=== PATIENT | male | born 1990 | race Two or more races ===

== ENCOUNTER 2019-12-03 21:22 | Emergency (ER) | payer MEDICAID ==
--- NOTE | 2019-12-03 22:08 | EDM.PDOC ---
ED HPI GENERAL MEDICAL PROBLEM - General Chief Complaint: Upper Extremity Injury/Pain Stated Complaint: INJURED RIGHT WRIST Time Seen by Provider: 12/03/19 21:50 Source of Information: Reports: Patient History Limitations: Reports: No Limitations - History of Present Illness INITIAL COMMENTS - FREE TEXT/NARRATIVE: 29-year-old male fell over a dog 2 days ago landing on his right hand. There was some initial swelling but very minimal pain, swelling is down now but the pain is worse. Painful to grab something. Pain seems to be localized at the wrist on the ulnar side. Onset: Sudden Duration: Day(s): (3 days ago) Location: Reports: Upper Extremity, Right Associated Symptoms: Reports: No Other Symptoms Right Wrist Pain Score (Numeric/FACES): 9 - Related Data Allergies Allergy/AdvReac Type Severity Reaction Status Date / Time No Known Allergies Allergy Verified 12/03/19 21:39 Home Meds: Home Meds NK [No Known Home Meds] 12/03/19 [History] Past Medical History Psychiatric History: Reports: Depression Social & Family History - Tobacco Use Smoking Status *Q: Light Tobacco Smoker Years of Tobacco use: 10 Packs/Tins Daily: 0.3 - Caffeine Use Caffeine Use: Reports: None - Recreational Drug Use Recreational Drug Use: No Review of Systems - Review of Systems Review Of Systems: See Below Constitutional: Denies: Fever Respiratory: Reports: No Symptoms Skin: Reports: Bruising (Some bruising has developed in the palm of the hand) Neurological: Denies: Paresthesia ED EXAM, GENERAL - Physical Exam Exam: See Below Exam Limited By: No Limitations General Appearance: Alert, No Apparent Distress Head: Atraumatic Respiratory/Chest: No Respiratory Distress Extremities: Other (Right clavicle, shoulder and elbow are normal. Right wrist has no tenderness with lateral compression of the ulna and radius. There is focal tenderness over the radial ulnar joint and fifth meta carpal. No deformity) Course - Vital Signs Last Recorded V/S: Last Vital Signs Temp 97.8 F 12/03/19 21:38 Pulse 72 12/03/19 21:38 Resp 16 12/03/19 21:38 BP 136/79 12/03/19 21:38 Pulse Ox 97 12/03/19 21:38 - Orders/Labs/Meds Orders: Active Orders 24 hr Category Date Time Status Consult to Orthopedic Clinic [CONS] Routine Cons 12/03/19 22:13 Active Hand Comp Min 3V Rt [CR] Stat Exams 12/03/19 21:50 Taken DME for Discharge [COMM] Stat Oth 12/03/19 22:12 Ordered - Re-Assessments/Exams Free Text/Narrative Re-Assessment/Exam: 12/03/19 22:15 X-ray shows a small fracture, at the very proximal aspect likely the metaphysis of the fifth metacarpal. A right hand ulnar gutter splint was applied with 10 inches of Ortho-Glass. Consultation with orthopedics next week, he was also provided a sling for comfort. Anti-inflammatories as needed. Departure - Departure Time of Disposition: 22:34 Disposition: Home, Self-Care 01 Clinical Impression: Fracture of fifth metacarpal bone of right hand Qualifiers: Encounter type: initial encounter Fracture type: closed Metacarpal location: base Fracture alignment: displaced Qualified Code(s): S62.316A - Displaced fracture of base of fifth metacarpal bone, right hand, initial encounter for closed fracture - Discharge Information Instructions: Metacarpal Fracture Referrals: PCP,None [Primary Care Provider] - Forms: ED Department Discharge Care Plan Goals: Wear splint through the weekend, use sling for comfort. Ibuprofen should be helpful with pain and call the orthopedic clinic tomorrow to set up an appointment next week. Sepsis Event Note - Evaluation Sepsis Screening Result: No Definite Risk - Focused Exam Vital Signs: Vital Signs Temp Pulse Resp BP Pulse Ox 12/03/19 21:38 97.8 F 72 16 136/79 97 12/03/19 21:34 97.8 F 72 16 136/79 97 Date Exam was Performed: 12/04/19 Time Exam was Performed: 00:26 - My Orders Last 24 Hours: My Active Orders 12/03/19 21:50 Hand Comp Min 3V Rt [CR] Stat 12/03/19 22:12 DME for Discharge [COMM] Stat 12/03/19 22:13 Consult to Orthopedic Clinic [CONS] Routine - Assessment/Plan Last 24 Hours: My Active Orders 12/03/19 21:50 Hand Comp Min 3V Rt [CR] Stat 12/03/19 22:12 DME for Discharge [COMM] Stat 12/03/19 22:13 Consult to Orthopedic Clinic [CONS] Routine
--- NOTE | 2019-12-04 09:58 | CR ---
Hand Comp Min 3V Rt CLINICAL HISTORY: Injury FINDINGS: There is a comminuted fracture through the base of the fifth metacarpal. There is articular surface involvement. IMPRESSION: Fracture through base of fifth metacarpal
== END 2019-12-03 22:34 | disposition home or self-care (01) ==
LOC: JP.ED 21:22
DX: S62.316A Displaced fracture of base of fifth metacarpal bone, right hand, initial encounter for closed fracture (principal); F17.210 Nicotine dependence, cigarettes, uncomplicated; W18.30XA Fall on same level, unspecified, initial encounter
CPT/HCPCS: 29125; 73130-26-RT; 73130-RT; 99283-25

== ENCOUNTER 2021-10-07 11:22 | Emergency (ER) | payer MEDICAID ==
[2021-10-07 12:13] LABS: CORONAVIRUS COVID-19 NAA NEGATIVE (NEGATIVE)
== END 2021-10-07 14:06 | disposition home or self-care (01) ==
LOC: JP.ED 11:22
DX: B34.9 Viral infection, unspecified (principal); Z72.0 Tobacco use; Z20.822 Contact with and (suspected) exposure to COVID-19
CPT/HCPCS: 0241U; 36415; 71046; 71046-26; 80048; 85025; 99282; 99283-25

== ENCOUNTER 2022-12-26 22:08 | Emergency (ER) | payer MEDICAID ==
[2022-12-27] MEDS ORDERED: Ketorolac 30 MG/ML SDV IM ONE (00:10)
== END 2022-12-27 00:40 | disposition home or self-care (01) ==
LOC: JP.ED 22:08
DX: M53.3 Sacrococcygeal disorders, not elsewhere classified (principal); F17.210 Nicotine dependence, cigarettes, uncomplicated
CPT/HCPCS: 72220; 96372; 99283; J1885

== ENCOUNTER 2025-02-10 14:58 | Emergency (ER) | payer MEDICAID ==
[2025-02-10] MEDS: Ketorolac 30 MG/ML SDV IM ONE (17:10)
== END 2025-02-10 17:20 | disposition home or self-care (01) ==
LOC: JP.ED 14:58
DX: M53.3 Sacrococcygeal disorders, not elsewhere classified (principal); F17.200 Nicotine dependence, unspecified, uncomplicated; Z79.899 Other long term (current) drug therapy
CPT/HCPCS: 96372; 99283; J1885